=== PATIENT | male | born 1985 | race Caucasian/White ===

== ENCOUNTER 2019-06-27 08:34 | Emergency (ER) | payer OTHER, SELFPAY ==
--- NOTE | 2019-06-27 08:38 | ED.GENADULT ---
HPI - General Adult General Chief complaint: Upper Respiratory Infection Stated complaint: Feer/Sore throat Time Seen by Provider: 06/27/19 08:55 Source: patient and RN notes reviewed Mode of arrival: ambulatory Limitations: no limitations History of Present Illness HPI narrative: This patient's had onset of a sore throat that began on 06/22/2019 with a fever 100 degrees. Is also had green nasal drainage. He is not had any ear pain or drainage from the ears. Has had no cough. He has had no rashes. There is been no nausea, no vomiting, and no diarrhea. He has had no hematuria, no dysuria, no pyuria. He has had no rashes. Not been traveling. His son has been ill with same symptoms for the same period of time. He has had no known exposure to anyone with strep throat, mono, influenza, bronchitis, pneumonia that he is aware of. Related Data Allergies Allergy/AdvReac Type Severity Reaction Status Date / Time No Known Allergies Allergy Unknown Verified 06/27/19 08:52 Review of Systems Review of Systems: Narrative: CONSTITUTIONAL: Denies fever, chills, or sweats. Noncontributory except as pertains to the past medical history and history of present illness. EYES: Denies visual changes, redness, or discharge. ENT: Denies rhinorrhea, congestion, sore throat, or otalgia. CARDIOVASCULAR: Denies chest pain, palpitations, or edema. RESPIRATORY: Denies cough or dyspnea. GASTROINTESTINAL: Denies abdominal pain, nausea, vomiting, or diarrhea. GENITOURINARY: Denies dysuria or hematuria. SKIN: Denies rash or itching. MUSCULOSKELETAL: Denies back pain, joint pain, or myalgia. NEUROLOGIC: Denies headache, numbness, or weakness. PSYCHIATRIC: Denies anxiety or depression. PMFSH Comments At time of signature, I have reviewed and agree with nursing past medical, surgical, social, and family history.Please see nursing chart for further information. There is no relevant family history pertinent to the presenting complaint. Exam Narrative: Exam Narrative: GENERAL: Well-appearing, well-nourished, and in no acute distress. HEAD: Normocephalic, atraumatic. There is no palpation tenderness over the frontal, maxillary, mastoid sinus areas. EYES: PERRLA and EOMI. EARS: TM's clear bilaterally and the canals are clear. NOSE: Nares have edematous mucosa and have purulent rhinorrhea with postnasal drip. THROAT:Mucous membranes moist.Oropharynx is erythematous with exudates present. NECK: Supple. No adenopathy of the neck, supraclavicular, axillary, or inguinal areas. RESPIRATORY: No respiratory distress. Airway patent. Respirations non-labored. Clear to auscultation. There are no wheezes, no rales, no retractions, no use accessory muscles of respirations. Patient's not cyanotic and not dyspneic. Pulse ox on room air is 97% current temperature is 99.0. HEART: Regular rate and rhythm. No murmur heard. Normal peripheral pulses. ABDOMEN: Soft, nontender, nondistended, normal active bowel sounds.No masses. No rebound or guarding, No organomegaly. There is no CVA pain. No pain McBurney's point. The patient is a negative Lawrence sign and negative Rovsing sign. There are no pulsatile masses no audible bruits. EXTREMITIES: No clubbing/cyanosis/ edema. Normal strength & range of motion. SKIN: Warm, dry.Normal color. No skin rash or skin lesions. Patient is well-nourished well-hydrated and has moist mucous membranes and no tenting of the skin. NEURO: Alert and oriented. CN 2-12 grossly intact. No focal deficits. PSYCH: Normal mood and affect. Course Vital Signs Vital signs: Afebrile and the other vital signs are toshia, except his blood pressure is elevated at 144/85 should be rechecked with PCP in 1 to 4 weeks. The potential complications of uncontrolled hypertension are noted. Medical Decision Making MDM Narrative Medical decision making narrative: Pharyngitis, possible strep throat, and sinus infection. Lab Data Lab results narrative: The rapid strep test
[2019-06-27 08:49] VITALS: BP 144/85; PULSE 88; RESP 18; TEMP 37.2; O2SAT 97
== END 2019-06-27 09:19 | disposition home or self-care (01) ==
PROVIDERS: Emergency Provider Family Medicine; PCP Physician Assistant
DX: J01.10 Acute frontal sinusitis, unspecified (principal); J02.9 Acute pharyngitis, unspecified
CPT/HCPCS: 87081; 87880; 99213; G0463

== ENCOUNTER 2021-07-04 09:10 | Emergency (ER) | payer OTHER, SELFPAY ==
--- NOTE | ~2021-07-04 | XR_ITS ---
EXAMINATION: XR chest 1V EXAM DATE: 07/04/2021 10:19 INDICATION: Tachycardia. TECHNIQUE: Portable AP frontal chest x-ray was obtained. Comparison is made to prior examination from 07/16/2012. FINDINGS: The lungs are clear. There are no pleural effusions. The cardiomediastinal silhouette is within normal limits. There is no pneumothorax suspected. The bones and soft tissues are unremarkab le. IMPRESSION: No acute cardiopulmonary findings. Reviewed, dictated and finalized at location B. ST SPLITTER
--- NOTE | ~2021-07-04 | US_ITS ---
EXAMINATION: US venous doppler [facility] DATE: 07/04/2021 10:25 INDICATION: Left lower limb swelling and erythema TECHNIQUE: Grayscale ultrasound images without and with compression and Doppler ultrasound images of the left lower extremity veins were obtained. COMPARISON: None. FINDINGS: The visualized portions of left common femoral vein, profunda (deep) femoral vein, femoral vein, popl iteal vein, peroneal veins, posterior tibial veins, gastrocnemius vein and greater saphenous vein out flow are patent. IMPRESSION: 1. No deep venous thrombosis in the left lower limb. Reviewed, dictated and finalized at location A.
--- NOTE | ~2021-07-04 | US_ITS ---
EXAMINATION: US arterial ankle brachial ind DATE: 07/04/2021 11:58 INDICATION: Decreased pulses. TECHNIQUE: Segmental pressures and plethysmographic and Doppler waveforms of the brachial and lower e xtremity arteries were obtained. COMPARISON: None. FINDINGS: Right and left brachial artery pressures of 111 mm Hg and 119 mm Hg, respectively, are concordant (no rmal difference <= 30 mmHg). The right ankle-brachial index (KASHIF) is 1.19 (normal >= 0.9-1.0). The right great toe-brachial index (TBI) is 0.55 (normal >= 0.65). Arterial Doppler waveforms are triphasic with brisk systolic upstroke s at both the right posterior tibial and dorsalis pedis arteries. The left KASHIF is 1.21. The left TBI is 0.88. Arterial Doppler waveforms are triphasic with brisk systo lic upstrokes at both the left dorsalis pedis and posterior tibial arteries. IMPRESSION: 1. Mild arterial occlusive disease to the right lower limb with normal right KASHIF but mildly decreased right TBI. 2. No significant arterial occlusive disease to the left lower limb with normal left KASHIF and TBI. Reviewed, dictated and finalized at location A. CTOR OF CARDIOLOGY IMPRESSION: 1. Mild arterial occlusive disease to the right lower limb with normal right AB I but mildly decreased right TBI. 2. No significant arterial occlusive disease to the left lower limb with normal left KASHIF and TBI.
--- NOTE | ~2021-07-04 | CT_ITS ---
EXAMINATION: CTA chest PE protocol EXAM DATE: 07/04/2021 12:56 INDICATION: dimer positive TECHNIQUE: Spiral CTA of the chest (pulmonary arteries) was performed with 100 cc Omnipaque 350 intr avenous contrast injection. Images were acquired during the pulmonary arterial phase. Coronal maxi mum intensity projection 3D-reconstructions were created by the technologist on dedicated workstation . Axial, coronal and sagittal reformatted images were reviewed. The dose-length product (DLP) for t his examination was 501.14 mGy-cm. The exposure was tailored according to patient size (auto mA exp osure control), and iterative reconstruction (ASIR) was used as additional dose reduction technique. There is no prior study for comparison. FINDINGS: Pulmonary arteries are well opacified and without intraluminal filling defects. No thora cic aortic dissection. The lungs are clear. There are no pleural or pericardial effusions. Trach eobronchial tree is patent. There is no mediastinal, hilar or axillary lymphadenopathy. There is no pneumothorax. Heart normal in size. No evidence of coronary arterial calcification. Upper abd omen is unremarkable. There is thoracic spondylosis without osteoblastic or osteolytic lesions iden tified. IMPRESSION: 1. No pulmonary emboli or acute cardiopulmonary findings. Reviewed, dictated and finalized at location B. L MAINTENANCE WORKER
--- NOTE | ~2021-07-04 | XR_ITS ---
EXAMINATION: XR ankle LT min 3V, XR foot LT min 3V DATE: 07/04/2021 10:19 INDICATION: Previous reconstructive surgery. Erythema and pain at the left second and third toes. TECHNIQUE: 1. Anteroposterior, mortise, additional oblique and lateral view of the left ankle were obtained. 2. Dorsoplantar, two oblique and lateral views of the left foot were obtained. COMPARISON: None. FINDINGS: Realignment posterior calcaneal osteotomy with lateral plate and screw fixation. Alignment of the lef t foot and ankle is normal. No fracture. There is subtle linear subarticular sclerosis underlying the slightly flattened articular cortex at the head of the left second metatarsal consistent with osteon ecrosis (Freiberg's infraction). Joint spaces are well maintained. No cortical erosions or periosteal reaction. No ankle joint effusion. The soft tissues are unremarkable. IMPRESSION: 1. 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 2. Expected appearance of an internally fixed realignment osteotomy of the calcaneus. Reviewed, dictated and finalized at location A. TRIC TRACK SWITCH MAINTAINER IMPRESSION: 1. 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 2. Expected appearance of an internally fixed realignment osteotomy of the calc aneus.
[2021-07-04 09:14] VITALS: BP 143/98; PULSE 117; RESP 18; TEMP 36.4; O2SAT 97
--- NOTE | 2021-07-04 09:51 | ECG_ITS ---
Measurements Intervals [place] Rate: 91 P: 33 OR: 159 QRS: 55 QRSD: 92 T: 49 QT: 340 QTc: 420 Interpretive Statements SINUS RHYTHM DELAYED PRECORDIAL R/S TRANSITION BASELINE ARTIFACT- I, III BORDERLINE ECG Electronically Signed On 07-04-2021 10:06:54 BUSINESS PLANNING ANALYST by Baldev Hill D.O.
--- NOTE | 2021-07-04 09:54 | ED.GENADULT ---
HPI - General Adult General Chief complaint: Extremity Problem,Nontraumatic Stated complaint: L foot Time Seen by Provider: 07/04/21 09:13 Source: patient Mode of arrival: ambulatory Limitations: no limitations History of Present Illness HPI narrative: Patient presents for evaluation of pain, swelling, erythema in the left foot. He indicates he noted some pain in the third and fourth digit of that foot 5 days ago. Three days ago he noted redness an heat circumferentially in left lower extremity extending from the knee through the toes. He elevated his leg and redness improved. He went to see his PCP today for assessment of the redness in the third and fourth digits. He was advised to come to the hospital for further evaluation. Patient has underlying rheumatoid arthritis and is currently on methotrexate. His assistant auto center manager is Dr Knight at [facility]. He had reconstructive surgery of his left ankle approximately six months ago per Dr Pendleton at [facility]. However Dr. Pendleton is no longer with [facility]. Pt had chills yesterday. He denies any fever, nausea, or vomiting. He does not smoke. He has underlying eczema and psoriasis. He has had staph infections in the past. His is concerned that he may have a DVT. He states his current pain level is 8 out of 10 in severity, described as pressure and tight . He has tramadol that he takes at home for pain associated with RA. Related Data Home Medications Medication Instructions Recorded Confirmed bupropion HCl 150 mg PO BID 07/04/21 07/04/21 methotrexate sodium 2.5 mg WEEKLY 07/04/21 montelukast 10 mg DAILY 07/04/21 risperidone 2 mg BID 07/04/21 07/04/21 tramadol 50 mg PRN PRN 07/04/21 Allergies Allergy/AdvReac Type Severity Reaction Status Date / Time No Known Allergies Allergy Verified 07/04/21 09:17 Review of Systems Review of Systems: CONSTITUTIONAL: Reports chills yesterday, now resolved. Denies fever or sweats. EYES: Denies visual changes, redness, or discharge. ENT: Denies rhinorrhea, congestion, sore throat, or otalgia. CARDIOVASCULAR: Denies chest pain, palpitations, or edema. RESPIRATORY: Denies cough or dyspnea. GASTROINTESTINAL: Denies abdominal pain, nausea, vomiting, or diarrhea. GENITOURINARY: Denies dysuria or hematuria. SKIN: Reports redness to the third and fourth digits of the left foot. Denies rash or itching. MUSCULOSKELETAL: Reports pain in the third and fourth digits of the left foot. Denies back pain, joint pain, or myalgia. NEUROLOGIC: Denies headache, numbness, dizziness, or weakness. PSYCHIATRIC: Denies anxiety or depression. 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 HEAD: Normocephalic, atraumatic. EYES: PERRLA and EOMI. ENT: Nares clear, no rhinorrhea or epistaxis. Mucous membranes moist. Oropharynx without tonsillar hypertrophy exudate or other lesions. Bilateral TMs pearly greco nonbulging NECK: Supple. No adenopathy or masses. No carotid bruits or JVD CHEST: Cl
[2021-07-04] MEDS: SODIUM CHLORIDE 0.9% IV 1,000 ML 999 ML IV CONT (10:04)
[2021-07-04] MEDS: traMADol HCL (*CRX) 50 MG TABLET 100 MG PO (10:04)
[2021-07-04 10:11] LABS: Basophils Absolute Auto 0.1 K/mm3 (0.0-0.1); Basophils Percent Auto 0.8 % (0.2-1.2); Eosinophils Absolute Auto 0.4 K/mm3 (0-0.3); Eosinophils Percent Auto 4.4 % (0-4.4); Hematocrit 43.9 % (42.0-52.0); Immature Granulocyte Absolute 0.02 K/mm3 (0.00-0.031); Immature Granulocyte Percent A 0.3 % (0-0.5); Lymphocytes Absolute Auto 1.09 K/mm3 (0.9-3.2); Lymphocytes Percent Auto 13.7 % (18.3-44.2); Mean Corpuscular HGB Conc 34.2 g/dl (32-36); Mean Corpuscular Hemoglobin 31.2 pg (26-34); Mean Corpuscular Volume 91.3 fl (80-100); Mean Platelet Volume 10.3 fl (7.4-10.4); Monocytes Absolute Auto 0.6 K/mm3 (0.1-0.6); Monocytes Percent Auto 7.3 % (2.6-8.5); Neutrophils Absolute Auto 5.8 K/mm3 (1.3-6.7); Neutrophils Percent Auto 73.5 % (45.5-73.1); Platelet Count Result 278 k/mm3 (150-375); Red Blood Count 4.81 M/mm3 (4.6-6.20); Red Cell Distribution Width 13.1 % (11.5-14.5); White Blood Count 7.9 K/mm3 (4.5-10.0)
[2021-07-04 10:26] LABS: Alanine Aminotransferase 27 U/L (4-50); Albumin Level 4.6 g/dL (3.5-5.1); Alkaline Phosphatase 98 U/L (38-126); Anion Gap 4 mmol/L (8-16); Aspartate Amino Transferase 28 U/L (17-59); Bilirubin,Total 0.5 mg/dL (0.2-1.3); Blood Urea Nitrogen 18 mg/dL (9-20); CRP 2.2 mg/dL (<1.0); Calcium 9.9 mg/dL (8.4-10.2); Carbon Dioxide 32 mmol/L (22-30); Chloride 101 mmol/L (98-107); Estimated CRCL calculation 88 ml/min; Estimated Glomerular Filt Rate > 60; Glucose 104 mg/dL (65-110); Partial Thromboplastin Time 30.3 SECONDS (22.3-36.8); Potassium 4.6 mmol/L (3.4-5.0); Sodium 137 mmol/L (137-145); Uric Acid 6.6 mg/dL (3.5-8.5)
[2021-07-04 10:29] LABS: D Dimer 0.85 ug/mL (<0.48)
[2021-07-04 10:32] LABS: Prothrombin Time 12.8 Seconds (11.1-14.7)
[2021-07-04 10:35] LABS: Troponin I < 0.012 ng/mL (0.000-0.034)
[2021-07-04 10:36] LABS: Erythrocyte Sedimentation Rate 28 mm/hr (0-20)
[2021-07-04] MEDS: CEPHALEXIN 500 MG CAPSULE PO (13:06)
[2021-07-04] MEDS: ASPIRIN 325 MG TABLET PO (13:06)
[2021-07-04] MEDS: HYDROcodone/acetaminophen (*CRX) 5-325 MG TABLET 2 TAB PO (13:24)
[2021-07-04 13:34] VITALS: BP 132/68; PULSE 76; RESP 18; O2SAT 99
== END 2021-07-04 13:35 | disposition home or self-care (01) ==
PROVIDERS: Emergency Provider Nurse Practitioner; PCP Physician Assistant
DX: L03.116 Cellulitis of left lower limb (principal); M87.9 Osteonecrosis, unspecified; M06.9 Rheumatoid arthritis, unspecified; J45.909 Unspecified asthma, uncomplicated; I70.201 Unspecified atherosclerosis of native arteries of extremities, right leg; R94.31 Abnormal electrocardiogram [ECG] [EKG]
CPT/HCPCS: 36415; 71045; 71275; 73610; 73630; 80053; 83605; 84484; 84550; 85025; 85380; 85610; 85652; 85730; 86140; 93005; 93922; 93971; 96360; 99284; A9270; J7030; Q9967

== ENCOUNTER 2023-11-26 14:12 | Emergency (ER) | payer OTHER, SELFPAY ==
--- NOTE | ~2023-11-26 | XR_ITS ---
EXAMINATION: XR chest 1V Exam Date/Time: 11/26/2023 16:45 CDT HISTORY: chest pain Comparison: 07/04/2021. RESULT: Lines, tubes, and devices: None. Lungs and pleura: Clear. Cardiomediastinal silhouette: Stable. Other: No acute osseous or upper abdominal finding. IMPRESSION: No acute cardiopulmonary process. Reviewed, dictated and finalized at location K.
[2023-11-26 14:13] VITALS: BP 148/95; PULSE 113; RESP 18; TEMP 36.4; O2SAT 100
--- NOTE | 2023-11-26 16:33 | ED.GENADULT ---
HPI - General Adult General Chief complaint: Skin/Abscess/Foreign Body Stated complaint: rash to hands and feet Time Seen by Provider: 11/26/23 14:21 History of Present Illness HPI narrative: this is a 37-year-old male with a history of eczema, psoriasis and bipolar disorder presenting for a rash. Patient was started on lamotrigine by his psychiatrist 2 weeks ago. He stopped taking it after 1 week due to feelings of fatigue. One week after that he developed worsening rash over his hands feet knees and elbows. He has had this in the past due to his psoriasis although this is worse than usual. He had some concerns about Kin Elan syndrome. He does not have any mucosal involvement no fevers chills fatigues or other complaint. Patient is requesting a work note. Related Data Home Medications Medication Instructions Recorded Confirmed bupropion HCl 150 mg tablet,12 hr 150 mg PO BID 07/04/21 07/04/21 sustained-release methotrexate sodium 2.5 mg tablet 2.5 mg WEEKLY 07/04/21 montelukast 10 mg tablet 10 mg DAILY 07/04/21 risperidone 2 mg tablet 2 mg BID 07/04/21 07/04/21 tramadol 50 mg tablet 50 mg PRN PRN Pain 07/04/21 Allergies Allergy/AdvReac Type Severity Reaction Status Date / Time No Known Allergies Allergy Verified 11/26/23 16:02 [facility] Past Medical History Medical History Asthma Eczema Psoriasis Rheumatoid arthritis Surgical History Surgical History History of ankle surgery History of inguinal hernia repair Family History Family History Mother Rheumatoid arthritis Psoriasis Diabetes mellitus Asthma Social History Social History Smoking status: Never smoker Alcohol intake: former Alcohol use details: No ETOH in five years Substance use: never Living arrangements: with family 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 Head: atraumatic. EYES: EOMI, NOSE: Atraumatic NECK: Trachea midline RESPIRATORY: No increased rate of breathing CARDIOVASCULAR: RRR, ABDOMINAL: Non-distended nontender no guarding or rebound MUSCULOSKELETAl: No obvious deformities NEURO: Alert. Moving 4/4 extremities SKIN:: silver scale rash over the top of the patient's feet, and knees and elbows. Papular rash over the hands. No mucosal involvement. No sloughing of skin or Nikolsky sign. PSYCHIATRIC: Normal affect Course Vital Signs Vital signs: Vital Signs Temperature 97.5 F L 11/26/23 14:13 Pulse Rate 113 H 11/26/23 14:13 Respiratory Rate 18 11/26/23 14:13 Blood Pressure 148/95 H 11/26/23 14:13 Pulse Oximetry 100 11/26/23 14:13 Oxygen Delivery Room Air 11/26/23 14:13 Temperature 97.5 F L 11/26/23 14:13 Pulse Rate 113 H 11/26/23 14:13 Respiratory Rate 18 11/26/23 14:13 Blood Pressure 148/95 H 11/26/23 14:13 Pulse Oximetry 100 11/26/23 14:13 Oxygen Delivery Room Air 11/26/23 14:13 Medical Decision Making MDM Narrative Medical decision making narrative: -Course: 37-year-old with eczema psoriasis presenting with worsening Scaly rash over his hands feet and extensor surfaces. he had some concern about Juarez-Elan syndrome but has no mucosal involvement, Nikolsky sign or systemic signs of illness. patient has already discontinued the lamotrigine. This is far more likely to be flare of his psoriasis or eczema as opposed to Kin Elan syndrome. Patient will be discharged with close primary care follow-up. He has been given return precautions for mucosal involvement or systemic signs
[2023-11-26] MEDS: dexAMETHasone SOD PHOS INJ 10 MG/ML 1 ML VIAL IM (16:34)
[2023-11-26 16:41] VITALS: BP 148/86; PULSE 109; TEMP 36.7; O2SAT 97
[2023-11-26] MEDS: SODIUM CHLORIDE 0.9% IV 2,000 ML 999 ML IV CONT (16:46)
[2023-11-26 17:02] LABS: Basophils Absolute Auto 0.1 K/mm3 (0.0-0.1); Basophils Percent Auto 0.5 % (0.2-1.2); Eosinophils Absolute Auto 0.3 K/mm3 (0-0.3); Eosinophils Percent Auto 2.7 % (0-4.4); Hematocrit 46.4 % (42.0-52.0); Hemoglobin 15.8 g/dL (14.0-18.0); Immature Granulocyte Absolute 0.04 K/mm3 (0.00-0.031); Immature Granulocyte Percent A 0.4 % (0-0.5); Lymphocytes Absolute Auto 1.31 K/mm3 (0.9-3.2); Lymphocytes Percent Auto 11.7 % (18.3-44.2); Mean Corpuscular HGB Conc 34.1 g/dl (32-36); Mean Platelet Volume 10.3 fl (7.4-10.4); Monocytes Absolute Auto 0.7 K/mm3 (0.1-0.6); Monocytes Percent Auto 6.3 % (2.6-8.5); Neutrophils Absolute Auto 8.8 K/mm3 (1.3-6.7); Neutrophils Percent Auto 78.4 % (45.5-73.1); Platelet Count Result 314 k/mm3 (150-375); Red Blood Count 5.27 M/mm3 (4.6-6.20); Red Cell Distribution Width 13.5 % (11.5-14.5); White Blood Count 11.2 K/mm3 (4.5-10.0)
[2023-11-26 17:06] LABS: Alanine Aminotransferase 43 U/L (6-50); Albumin Level 4.5 g/dL (3.5-5.1); Alkaline Phosphatase 108 U/L (38-126); Anion Gap 8 mmol/L (4-12); Aspartate Amino Transferase 36 U/L (17-59); Bilirubin,Total 0.5 mg/dL (0.2-1.3); Blood Urea Nitrogen 24 mg/dL (9-20); Calcium 8.9 mg/dL (8.4-10.2); Carbon Dioxide 26 mmol/L (22-30); Chloride 107 mmol/L (98-107); Estimated CRCL calculation 108 ml/min; Estimated Glomerular Filt Rate > 60; Glucose 97 mg/dL (65-110); Potassium 4.1 mmol/L (3.4-5.0); Sodium 141 mmol/L (137-145)
[2023-11-26 17:21] VITALS: TEMP 36.7
[2023-11-26 17:35] LABS: Erythrocyte Sedimentation Rate 4 mm/hr (0-20)
[2023-11-26 17:46] VITALS: BP 130/84; PULSE 83; RESP 20; O2SAT 99
[2023-11-26] MEDS: TETANUS,DIPHTHERIA,AC PERTUSSIS ADULT (0.5 ML) BOOSTRIX IM (17:55)
== END 2023-11-26 17:56 | disposition home or self-care (01) ==
PROVIDERS: Emergency Provider Emergency Medicine; PCP Physician Assistant
DX: L30.9 Dermatitis, unspecified (principal); L40.9 Psoriasis, unspecified; Z23 Encounter for immunization; J45.909 Unspecified asthma, uncomplicated; M06.9 Rheumatoid arthritis, unspecified; Z79.899 Other long term (current) drug therapy; Z79.02 Long term (current) use of antithrombotics/antiplatelets
CPT/HCPCS: 36415; 71045; 80053; 85025; 85652; 90471; 90715; 96372; 99283; J1100; J7030